=== PATIENT | male | born 1950 | race Caucasian/White ===

== ENCOUNTER 2020-10-24 05:56 | Day surgery (SDC) | payer MEDICARE ==
[~2020-10-24] VITALS: Ht 193 cm; Wt 113.6 kg
[2020-10-24] MEDS ORDERED: OMEG100023 PO (06:26)
[2020-10-24] MEDS ORDERED: FINA5TAB4 PO (06:26)
[2020-10-24] MEDS ORDERED: SPIR50TA4 PO (06:26)
[2020-10-24] MEDS ORDERED: LISI5TAB7 PO (06:26)
[2020-10-24] MEDS ORDERED: CHOL10003 PO (06:26)
[2020-10-24] MEDS ORDERED: SAW/1TAB2 PO (06:26)
[2020-10-24] MEDS ORDERED: IBUP-1623 PO (06:26)
[2020-10-24] MEDS ORDERED: AMLO-211 PO (06:26)
[2020-10-24] MEDS ORDERED: SODIUM CHLORIDE 0.9% 1,000 ML IV SCH (06:30)
[2020-10-24 06:31] VITALS: BP 128/76
[2020-10-24] MEDS ORDERED: MIDAZOLAM 1 MG/ML, 2ML ONE ×2 (07:25→08:55)
[2020-10-24] MEDS ORDERED: ISOPROTERENOL 0.2MG/ML, 5ML ONE (07:25)
[2020-10-24] MEDS ORDERED: LIDOCAINE 1%, 20ML ONE (07:25)
[2020-10-24 07:34] LABS: BASOPHILS % (AUTO) 1 % (0-1); EOSINOPHILS % (AUTO) 3 % (1-7); LYMPHOCYTES % (AUTO) 26 % (22-44); MEAN CORPUSCULAR HEMOGLOBIN 30.3 pg (27.5-34.5); MEAN CORPUSCULAR HGB CONC 34.2 g/dL (33.2-36.2); MONOCYTES % (AUTO) 13 % (2-9); NEUTROPHILS % (AUTO) 58 % (42-75); PLATELET COUNT 253 x10^3/uL (130-400); RED BLOOD COUNT 4.85 x10^6/uL (4.38-5.82); RED CELL DISTRIBUTION WIDTH 13.6 % (9.4-14.8)
[2020-10-24 07:45] LABS: INTERNATIONAL NORMALIZED RATIO 0.96 (0.93-1.1); PROTHROMBIN TIME 10.3 Seconds (9.6-11.5)
[2020-10-24] MEDS ORDERED: FENTANYL PF 100 MCG/2ML ONE (08:29)
[2020-10-24 08:38] LABS: ALANINE AMINOTRANSFERASE 25 U/L (12-78); ALBUMIN 3.7 g/dL (3.4-5.0); ANION GAP 9 mmol/L (5-15); CALCIUM 8.6 mg/dL (8.5-10.1); CHLORIDE 108 mmol/L (98-107); CREATININE 0.91 mg/dL (0.7-1.3)
[2020-10-24 08:40] LABS: ALKALINE PHOSPHATASE 76 U/L (45-117); BILIRUBIN,TOTAL 0.8 mg/dL (0.2-1.0); TOTAL PROTEIN 6.9 g/dL (6.4-8.2)
[2020-10-24] MEDS ORDERED: IBUPROFEN 200 MG TABLET PO SCH (21:00)
[2020-10-25] MEDS ORDERED: SAW HOMEMEDPO SCH (09:00)
[2020-10-25] MEDS ORDERED: CHOLECALCIFEROL 1,000 UNIT TABLET PO SCH (09:00)
[2020-10-25] MEDS ORDERED: PYG HOMEMEDPO SCH (09:00)
[2020-10-25] MEDS ORDERED: SPIRONOLACTONE 50 MG TABLET PO SCH (09:00)
[2020-10-25] MEDS ORDERED: [UNRECOGNIZED DRUG - OTHER] HOMEMEDPO SCH (09:00)
[2020-10-25] MEDS ORDERED: LYC HOMEMEDPO SCH (09:00)
[2020-10-25] MEDS ORDERED: VIT E HOMEMEDPO SCH (09:00)
[2020-10-25] MEDS ORDERED: OMEGA-3/FISH OIL CAPSULE PO SCH (09:00)
[2020-10-25] MEDS ORDERED: BETA HOMEMEDPO SCH (09:00)
[2020-10-25] MEDS ORDERED: AMLODIPINE 10 MG TAB PO SCH (09:00)
[2020-10-25] MEDS ORDERED: SOD SEL HOMEMEDPO SCH (09:00)
[2020-10-25] MEDS ORDERED: LISINOPRIL 5 MG TABLET PO SCH (09:00)
[2020-10-26] MEDS ORDERED: FINASTERIDE 5 MG TABLET PO SCH (09:00)
== END 2020-10-24 13:50 | disposition home or self-care (01) ==
LOC: CACL 05:56
PROVIDERS: ATTEND Internal Medicine Cardiovascular Disease
DX: I47.1 Supraventricular tachycardia (principal); I10 Essential (primary) hypertension; Z79.01 Long term (current) use of anticoagulants; Z79.899 Other long term (current) drug therapy; Z88.8 Allergy status to other drugs, medicaments and biological substances
CPT/HCPCS: 36415; 71046; 80053; 85025; 85610; 85730; 93005; 93613; 93621; 93623; 93653; 99156; 99157; C1730; C1894; C2630; J2250; J3010